=== PATIENT | female | born 1985 | race Caucasian/White ===

== ENCOUNTER 2017-12-06 00:16 | Emergency (ER) | payer OTHER ==
[~2017-12-06] VITALS: Ht 154.9 cm; Wt 90.7 kg
--- NOTE | 2017-12-06 00:17 | NUR ---
Andres cruz in [facility] - 12/06/17 at 0050 by ALIA RAFIA Gunderson
[2017-12-06 00:27] VITALS: BP 96/50
--- NOTE | 2017-12-06 00:31 | NUR ---
PT.BIB TO [facility]
--- NOTE | 2017-12-06 00:46 | NUR ---
Andres cruz in [facility] - 12/06/17 at 0047 by ALIA TO ER BED 12
--- NOTE | 2017-12-06 00:46 | NUR ---
Andres cruz in [facility] - 12/06/17 at 0050 by MED[facility] MOVED TO ER BED 12
--- NOTE | 2017-12-06 00:47 | NUR ---
Andres cruz in [facility] - 12/06/17 at 0048 by ALIA RAFIA Gunderson
--- NOTE | 2017-12-06 01:27 | NUR ---
To bed 1 via w/c.
--- NOTE | 2017-12-06 01:28 | NUR ---
PATIENT IS A 32 Y/O FEMALE WHO PRESENTS TO THE ED S/P DRUG INGESTION. FAMILY STATES THAT SHE ATE AN 'EDIBLE BROWNIE' AT [facility] AND STARTED HAVING ABD PAIN. PT REPORTS 10/10 ACHING ABD PAIN THAT DOES NOT RADIATE. PT DENIES CP, SOB, REPORTS VOMITING DENIES NAUSEA/DIARRHEA. PT AAOX4, RR EVEN/UNLABORED. PT REPOSITIONED FOR COMFORT, BED IN LOWEST POSITION. ER MD DR. NELSON NOTIFIED. WILL CONTINUE TO MONITOR.
[2017-12-06] MEDS ORDERED: ONDANSETRON 4 MG/2 ML VIAL IVP ONE (01:40)
[2017-12-06] MEDS ORDERED: NACL 0.9% 2,000 ML IV ONE (01:40)
--- NOTE | 2017-12-06 02:30 | NUR ---
PATIENT RESTING AT THIS TIME. FAMILY AT BEDSIDE.
[2017-12-06 03:33] VITALS: BP 99/68
--- NOTE | 2017-12-06 03:33 | NUR ---
Patient discharged with v/s stable. Written and verbal after care instructions given and explained. Patient verbalized understanding. Wheel Chair Assisted with to car. All questions addressed prior to discharge. Advised to follow up with PMD.
== END 2017-12-06 03:33 | disposition home or self-care (01) ==
LOC: MED 00:16
DX: R11.2 Nausea with vomiting, unspecified (principal); R19.7 Diarrhea, unspecified; T40.7X6A Underdosing of cannabis (derivatives), initial encounter; Z91.138 Patient's unintentional underdosing of medication regimen for other reason; Y92.89 Other specified places as the place of occurrence of the external cause
CPT/HCPCS: 96361; 96374; 99285; J2405; J7030